=== PATIENT | female | born 1990 | race Caucasian/White ===

== ENCOUNTER 2017-10-30 08:00 | Day surgery (SDC) | payer OTHER ==
[~2017-10-30] VITALS: Ht 177.8 cm; Wt 63.5 kg
[~2017-10-30 08:00] MED LIST: FLUOXETINE HCL40 MG PO; PROAIR HFA8.5 GM IH
[2017-10-30 08:46] VITALS: BP 118/75
[2017-10-30] MEDS ORDERED: AZO URINARY P97.5 MG PO (08:58)
[2017-10-30] MEDS ORDERED: HYDROMORPHONE HC4 MG PO (13:27)
[2017-10-30 14:35] VITALS: BP 122/74
== END 2017-10-30 15:15 | disposition home or self-care (01) ==
LOC: SDC 08:00
PROVIDERS: Surgery
PROC: BH01ZZZ Plain Radiography of Left Breast (ICD-10-PCS; principal; 2017-10-30)
PROC: 0HBU0ZX Excision of Left Breast, Open Approach, Diagnostic (ICD-10-PCS; principal; 2017-10-30)
DX: D24.2 Benign neoplasm of left breast (principal); N60.22 Fibroadenosis of left breast; J45.909 Unspecified asthma, uncomplicated; Z88.6 Allergy status to analgesic agent
CPT/HCPCS: 81025; 88305; J0690; J1100; J2175; J2250; J2405; J3010; Q0175; S0020